=== PATIENT | male | born 1980 | race Caucasian/White ===

== ENCOUNTER 2017-10-14 15:57 | Emergency (ER) | payer OTHER ==
[2017-10-14] MEDS ORDERED: LORazepam 2 MG/ML SDV IVPUSH ONE (17:55)
[2017-10-14] MEDS ORDERED: Glucagon,Human Recombinant 1 MG Vial IVPUSH ONE (17:55)
--- NOTE | 2017-10-14 18:01 | EDM.PDOC ---
ED HPI GENERAL MEDICAL PROBLEM - General Chief Complaint: General Stated Complaint: STEAK CAUGHT IN THROAT Time Seen by Provider: 10/14/17 17:45 Source of Information: Reports: Patient History Limitations: Reports: No Limitations - History of Present Illness INITIAL COMMENTS - FREE TEXT/NARRATIVE: Patient is a 36-year-old male presents ED complaining of a piece of steak stuck in esophagus. Patient states at 1:00 he took one bite of a piece of steak and immediately had the sensation of it being stuck in his esophagus. States he has discomfort noted in his chest that radiates into his back. He's had similar episode in the past 2013 that required egd. Patient did try to vomit but was unable to. Patient is unable to swallow his saliva thus is spitting into a bottle. Patient has no additional past medical history and currently taking no medications. No surgical history other than removal of food to esophagus. Patient does not smoked. Alcohol use occasionally. Denies recreational drug use. Chest Pain Score (Numeric/FACES): 6 - Related Data Allergies Allergy/AdvReac Type Severity Reaction Status Date / Time No Known Allergies Allergy Verified 10/14/17 16:18 Home Meds: Home Meds . [No Known Home Meds] 10/14/17 [History] Past Medical History Gastrointestinal History: Reports: Other (See Below) Other Gastrointestinal History: surgery to remove foreign object from throat about 1 yr ago Social & Family History - Tobacco Use Smoking Status *Q: Never Smoker - Caffeine Use Caffeine Use: Reports: Coffee, Soda - Recreational Drug Use Recreational Drug Use: No ED ROS GENERAL - Review of Systems Review Of Systems: ROS reveals no pertinent complaints other than HPI. ED EXAM, GENERAL - Physical Exam Exam: See Below Exam Limited By: No Limitations General Appearance: Alert, WD/WN, No Apparent Distress Ears: Hearing Grossly Normal Nose: Normal Inspection Throat/Mouth: Normal Voice, No Airway Compromise Neck: Normal Inspection, Supple Respiratory/Chest: No Respiratory Distress, Lungs Clear, Normal Breath Sounds, No Accessory Muscle Use, Chest Non-Tender Cardiovascular: Normal Peripheral Pulses, Regular Rate, Rhythm, No Murmur Peripheral Pulses: 4+: Radial (L), Radial (R) GI/Abdominal: Normal Bowel Sounds, Soft, Non-Tender, No Organomegaly, No Distention Extremities: Normal Inspection Neurological: Alert, Oriented, CN II-XII Intact, Normal Cognition, No Motor/ Sensory Deficits Psychiatric: Normal Affect, Normal Mood Skin Exam: Warm, Dry, Intact, Normal Color, No Rash Course - Vital Signs Last Recorded V/S: Last Vital Signs Temp 97.7 F 10/14/17 16:16 Pulse 92 10/14/17 18:45 Resp 22 H 10/14/17 18:45 BP 136/84 10/14/17 18:45 Pulse Ox 100 10/14/17 18:45 - Orders/Labs/Meds Orders: Active Orders 24 hr Category Date Time Status Communication Order [RC] STAT Care 10/14/17 17:56 Active Meds: Medications Discontinued Medications Generic Name Dose Route Start Last Admin Trade Name Freq PRN Reason Stop Dose Admin Glucagon 1 mg 10/14/17 17:55 10/14/17 18:28 Glucagen IVPUSH 10/14/17 17:56 1 mg ONETIME ONE Administration Lorazepam 1 mg 10/14/17 17:55 10/14/17 18:25 Ativan IVPUSH 10/14/17 17:56 1 mg ONETIME ONE Administration - Re-Assessments/Exams Free Text/Narrative Re-Assessment/Exam: IV established by nursing staff. Ordered glucagon 1 mg, Ativan 1 mg, and ordered nursing staff to allow patient to sip on clear carbonate beverage 15 minutes after administration of medications. 10/14/17 18:48 Patient has not vomited yet. Nursing staff has had the patient drink the carbonated clear solution. Patient stated the food bolus went down and has drank the remaining fluids with no n/v. Patient will be discharged home with instructions as documented. Departure - Departure Time of Disposition: 18:50 Disposition: Home, Self-Care 01 Condition: Good Clinical Impression: Food impaction of esophagus Qualifiers: Encounter type: initial encounter Qualified Code(s): T18.128A - Food in esophagus causing other injury, initial encounter - Discharge Information Referrals: PCP,None [Primary Care Provider] - Forms: ED Department Discharge Additional Instructions: Suggest follow-up with a primary care provider to arrange EGD and a treatment for esophageal's strictures. Suggest swallowing well chewed small pieces of food prior to swallowing so that this does not happen again. Return to the ED if you develop any new or worsening symptoms. - My Orders Last 24 Hours: My Active Orders 10/14/17 17:56 Communication Order [RC] STAT - Assessment/Plan Last 24 Hours: My Active Orders 10/14/17 17:56 Communication Order [RC] STAT
== END 2017-10-14 19:00 | disposition home or self-care (01) ==
LOC: JD.ED 15:57
DX: T18.128A Food in esophagus causing other injury, initial encounter (principal)
CPT/HCPCS: 96374; 96375; 99284; J1610; J2060; 99283